=== PATIENT | female | born 1975 | race Caucasian/White ===

== ENCOUNTER 2019-06-16 | Emergency (ER) | payer OTHER ==
[~2019-06-16] MED LIST: ACETTAB3 OR; ALLEGRA60 MG OR; AMOXICILLIN/CL875 MG PO; AMOXICILLIN500 MG PO; AMOXICILLIN875 MG OR; BL IBUPROFEN200 MG PO; CIPRO500 MG PO; CIPROFLOXACN500 MG PO; FIORICET; FIORICET PO; NAPROSYN500 MG PO; NO; PYRIDIUM200 MG PO; ULTRAM50 MG PO; ZYRTEC10 M5 PO
[2019-06-16 08:54] LABS: URINE BILIRUBIN - DIPSTICK NEGATIVE (NEGATIVE); URINE BLOOD DIPSTICK NEGATIVE (NEGATIVE); URINE COLOR YELLOW; URINE GLUCOSE - DIPSTICK NEGATIVE (NEGATIVE); URINE KETONE NEGATIVE (NEGATIVE); URINE LEUK ESTERASE TRACE (NEGATIVE); URINE NITRITE - DIPSTICK NEGATIVE (Negative); URINE PH 5.5 (4.5-8.0); URINE PROTEIN - DIPSTICK NEGATIVE (NEG-TRACE); URINE UROBILINOGEN - DIPSTICK 0.2 E.U./dL (0.2)
[2019-06-16] MEDS ORDERED: CEPHALEXIN500 MG PO (09:48)
[2019-06-16] MEDS ORDERED: CLARITIN10 M1 PO (09:48)
== END 2019-06-16 09:55 | disposition home or self-care (01) | DRG 690 ==
PROVIDERS: Emergency Medicine
DX: N39.0 Urinary tract infection, site not specified (principal); J32.9 Chronic sinusitis, unspecified; F17.200 Nicotine dependence, unspecified, uncomplicated

== ENCOUNTER 2021-02-14 11:52 | Emergency (ER) | payer OTHER ==
[~2021-02-14] VITALS: Ht 152.4 cm; Wt 61.0 kg
[~2021-02-14 11:52] MED LIST changes: +CEPHALEXIN500 MG PO; +CLARITIN10 M1 PO
[2021-02-14 12:58] LABS: URINE BILIRUBIN - DIPSTICK NEGATIVE (NEGATIVE); URINE BLOOD DIPSTICK NEGATIVE (NEGATIVE); URINE COLOR YELLOW; URINE GLUCOSE - DIPSTICK NEGATIVE (NEGATIVE); URINE KETONE NEGATIVE (NEGATIVE); URINE LEUK ESTERASE NEGATIVE (NEGATIVE); URINE PROTEIN - DIPSTICK NEGATIVE (NEG-TRACE); URINE SPECIFIC GRAVITY 1.025; URINE UROBILINOGEN - DIPSTICK 0.2 E.U./dL (0.2)
[2021-02-14 13:00] LABS: URINE NITRITE - DIPSTICK NEGATIVE (Negative)
[2021-02-14 13:04] LABS: HEMATOCRIT 41.8 % (37.0-47.0); HEMOGLOBIN 14.1 g/dl (12.0-16.0); MEAN CELL VOLUME 95.4 fL CALC (80.0-100.0); MEAN CORPUSCULAR HGB 32.2 pG CALC (26.0-32.0); MEAN CORPUSCULAR HGB CONC 33.7 g/dL CAL (32.0-36.0); NEUT# 4.82 thou/uL (2.00-7.15); RED BLOOD COUNT 4.38 mill/uL (4.20-5.60); RED CELL DISTRI WIDTH 11.5 % (11.5-15.5)
[2021-02-14 13:11] LABS: ALKALINE PHOSPHATASE 61 u/l (38-126); ANION GAP 11 (6-22 (CALC)); BILIRUBIN, TOTAL 0.4 mg/dL (0.0-1.4); BUN 10 mg/dL (7-17); BUN/CREATININE RATIO 14 (12-20 (CALC)); CARBON DIOXIDE 24 mmol/l (22-30); CHLORIDE 108 mmol/l (95-108); CREATININE 0.7 mg/dL (0.5-1.0); GFR > 60 ML/MIN (>=60 (CALC)); GFR FOR AFR.AMER. > 60 ML/MIN (>=60 (CALC)); LIPASE 39 u/l (23-300); POTASSIUM 3.2 mmol/l (3.5-5.1); SGOT/AST 18 u/l (14-36); SODIUM 139 mmol/l (137-146); TOTAL PROTEIN 6.9 g/dL (6.3-8.2)
[2021-02-14] MEDS ORDERED: OMNICEF300 M1 PO (14:45)
[2021-02-14 15:44] VITALS: BP 130/82
== END 2021-02-14 15:45 | disposition home or self-care (01) | DRG 552 ==
LOC: ED 11:52
PROVIDERS: Family Medicine
DX: M54.50 Low back pain, unspecified (principal); F17.210 Nicotine dependence, cigarettes, uncomplicated